=== PATIENT | female | born 1970 | race Caucasian/White ===

== ENCOUNTER 2019-05-18 05:45 | Day surgery (SDC) | payer OTHER ==
[~2019-05-18] VITALS: Ht 165.1 cm; Wt 90.3 kg
[~2019-05-18 05:45] MED LIST: AMOXICILLIN500 MG PO; BIRTH CONTROL; BUPROPION XL150 MG PO; NORCO 5-325 TA1 EACH PO; TUMS200 MG PO
[2019-05-18] MEDS ORDERED: HYDROCODON-ACE1 EA10 PO (07:24)
--- NOTE | 2019-05-18 13:23 | OR ---
[facility] [address] [place], [place] [address] Signed DATE OF OPERATION: 05/18/2019 SURGEON: Kip Huff MD PREOPERATIVE DIAGNOSIS: Carpal tunnel syndrome, left. POSTOPERATIVE DIAGNOSIS: Carpal tunnel syndrome, left. PROCEDURE PERFORMED: Left carpal tunnel release. DIRECTOR OF MIDWIFERY/STAFF MIDWIFE: None. ANESTHESIA: Tom block. TOURNIQUET TIME: 20 minutes. BRIEF HISTORY: Cristy is a 49-year-old female with bilateral carpal tunnel. She had undergone successful release of the right and wished to proceed with left. Risks, benefits, and alternatives were discussed and she elected to proceed. DESCRIPTION OF PROCEDURE: Once consent was obtained, she was taken to the operating room. After adequate anesthesia, she was placed on operating table. All downside pressure points well padded. The left arm was prepped and draped in a standard sterile fashion after establishment of the Tom block. The skin anesthesia was then checked using the forceps and found to be good. A 1.5 cm incision was made in the distal wrist crease, carried through skin and subcutaneous tissue. Palmaris longus was identified, retracted, and protected. All bleeders were cauterized with bipolar as we went. The transverse carpal ligament was identified under loupe magnification and dissected free of overlying soft tissue distally and proximally. It was then released proximally 1 cm and distally to the distal extent of the transverse carpal ligament. The release was done under loupe magnification. The release was then palpated and found to be completely released. The wound was copiously irrigated with normal saline and closed with 3-0 nylon. The skin Electronically Signed By: KIP HUFF MD 05/18/19 1323 PATIENT NAME: CRISTY JASON OPERATIVE REPORT DATE OF : 74 REPORT #: [id number] PHYSICIAN: KIP HUFF MD PCP: KENAN WORLEY MD REPORT IS CONFIDENTIAL AND NOT TO BE RELEASED WITHOUT AUTHORIZATION [facility] [address] [facility] [place], [place] [address] Signed incisions were then injected with 0.25% plain Marcaine. Wound was dressed with bacitracin, Adaptic, 4 x 8's, and gauze. She tolerated the procedure well. All sponge, needle, and instrument counts were correct. Kip Huff MD BA/MODL /[id number] Copies: ~ Electronically Signed By: KIP HUFF MD 05/18/19 1323 PATIENT NAME: CRISTY JASON OPERATIVE REPORT DATE OF : 74 REPORT #: [id number] PHYSICIAN: KIP HUFF MD PCP: KENAN WORLEY MD REPORT IS CONFIDENTIAL AND NOT TO BE RELEASED WITHOUT AUTHORIZATION
== END 2019-05-18 08:10 | disposition home or self-care (01) ==
LOC: DS 05:45 → OPS 05:45 → DS 06:45 → OPS 06:45 → DS 12:00
PROVIDERS: Specialist
PROC: 01N50ZZ Release Median Nerve, Open Approach (ICD-10-PCS; principal; 2019-05-18 06:45)
DX: G56.03 Carpal tunnel syndrome, bilateral upper limbs (principal); Z79.899 Other long term (current) drug therapy
CPT/HCPCS: 01810; J0690; J2250; J2405; J3010; J7121

== ENCOUNTER → 2020-02-06 | Emergency (ER) | payer OTHER ==
[~2020-02-06] VITALS: Ht 165.1 cm; Wt 90.3 kg
[~2020-02-06] MED LIST changes: +HYDROCODON-ACE1 EA10 PO
--- OUTSIDE RECORDS SUMMARY | ~2020-02-06 | XMS | Clinical Summary ---
Demographics + + + | Address | [address] | | | [place] [address] | + + + | Home Phone | | + + + | Preferred Language | Unknown | + + + | Marital Status | | + + + | Mandaeism Affiliation | Unknown | + + + | Race | White | + + + | Ethnic Group | Not or | + + + Author + + + | Author | [facility] | | | and [place] | + + + | Organization | [facility] | | | and [place] | + + + | Address | Unknown | + + + | Phone | Unavailable | + + + Support + + +---------+ + | Name | Relationship | Address | Phone | + + +---------+ + | None Provided | ECON | Unknown | | + + +---------+ + Care Team Providers + +------+ + | Care Opticianry Teacher Name | Role | Phone | + +------+ + | Perez Inman MD | PCP | | + +------+ + Allergies No Known Allergies Medications + + + +---------+------+------+-------+ | Medication | Sig | Dispensed | Refills | Star | End | Statu | | | | | | t | Date | s | | | | | | Date | | | + + + +---------+------+------+-------+ | buPROPion | Take 150 mg by mouth | | 0 | | | Activ | | (WELLBUTRIN XL) 150 | every morning. | | | | | e | | mg 24 hr tablet | | | | | | | + + + +---------+------+------+-------+ Active Problems + + + | Problem | Noted Date | + + + | Bilateral carpal tunnel syndrome | 03/27/2018 | + + + Family History + +------+ + + | Relation | Name | Status | Comments | + +------+ + + | Paternal Grandfather | | | diabetes | + +------+ + + Social History + +-------+ +--------+------+ | Tobacco Use | Types | Packs/Day | Years | Date | | | | | Used | | + +-------+ +--------+------+ | Never Smoker | | | | | + +-------+ +--------+------+ + +---+---+---+ | Smokeless Tobacco: | | | | | Never Used | | | | + +---+---+---+ + + +---------+ + | Alcohol Use | Drinks/Week | oz/Week | Comments | + + +---------+ + | No | | | | + + +---------+ + + + + | Sex Assigned at | Date Recorded | | | | + + + | Not on file | | + + + Last Filed Vital Signs + + + + + | Vital Sign | Reading | Time Taken | Comments | + + + + + | Blood Pressure | 124/78 | 03/27/2018 9:24 AM | | | | | PST | | + + + + + | Pulse | 87 | 03/27/2018 9:24 AM | | | | | PST | | + + + + + | Temperature | - | - | | + + + + + | Respiratory Rate | - | - | | + + + + + | Oxygen Saturation | - | - | | + + + + + | Inhaled Oxygen | - | - | | | Concentration | | | | + + + + + | Weight | 88.9 kg (196 lb) | 03/27/2018 9:24 AM | | | | | PST | | + + + + + | Height | 165.1 cm (5' 5") | 03/27/2018 9:24 AM | | | | | PST | | + + + + + | Body Mass Index | 32.62 | 03/27/2018 9:24 AM | | | | | PST | | + + + + + Plan of Treatment + + +-------+ + | Health Maintenance | Due Date | Last | Comments | | | | Done | | + + +-------+ + | Hepatitis C | | | | | Screening | 2 | | | + + +-------+ + | Vaccine: | | | | | Dtap/Tdap/Td (1 - | 1 | | | | Tdap) | | | | + + +-------+ + | Cervical Cancer | | | | | Screening (Pap) | 2 | | | + + +-------+ + | Breast Cancer | | | | | Screening | 7 | | | + + +-------+ + | Vaccine: Influenza | 09/01/202 | | | | (#1) | 0 | | | + + +-------+ + Results Not on filefrom Last 3 Months Insurance + +--------+ +--------+ +---------+--------+ | Payer | Benefi | Subscriber | Effect | Phone | Address | Type | | | t Plan | ID | funmi | | | | | | / | | Dates | | | | | | Group | | | | | | + +--------+ +--------+ +---------+--------+ | [employer] | [employer] | [id number] | | [phone] | | Medica | | MEDICAID HMO | HEALTH | | 018-Pr | 1 | | id | | | MDCD | | esent | | | | | | [place] | | | | | | + +--------+ +--------+ +---------+--------+ + +--------+ +--------+ + + | Guarantor Name | Accoun | Relation to | Date | Phone | Billing Address | | | t Type | Patient | of | | | | | | | | | | + +--------+ +--------+ + + | Constance Curry | Person | Self | [birth year] | [address] | | | al/Fam | | 1969 | | [place] [address] | | | hernando | | | 2 (Home) | | + +--------+ +--------+ + + | Constance Curry | Person | Self [birth year] | [address] | | | al/Fam | | 1969 | | [place] [address] | | | hernando | | | 2 (Home) | | + +--------+ +--------+ + + Advance Directives + + + + + | Type | Date Recorded | Patient | Explanation | | | | Soil Sampler | | + + + + + | Power of | | | | | Broadcast Designer | | | | + + + + + | Advance | | | | | Directive | | | | + + + + +
--- OUTSIDE RECORDS SUMMARY | ~2020-02-06 | XMS | Encounter Summary ---
Demographics + + + | Address | [address] | | | [place] [address] | + + + | Home Phone | | + + + | Preferred Language | Unknown | + + + | Marital Status | | + + + | Amish Affiliation | Unknown | + + + | Race | White | + + + | Ethnic Group | Not or | + + + Author + + + | Author | [facility] | | | and [place] | + + + | Organization | [facility] | | | and [...] Team Providers + +------+ + | Care Hotel Houseman Name | Role | Phone | + +------+ + | Perez Inman MD | PCP | | + +------+ + Reason for Visit + + + | Reason | Comments | + + + | Arm Pain | numbness and tingling | + + + | Hand Pain | numbness and tingling | + + + Service/Procedure (Routine) +--------+--------+ + + + + | Status | Reason | Specialty | Diagnoses / | Referred By | Referred To | | | | | Procedures | Contact | Contact | +--------+--------+ + + + + | Closed | | Physical | Diagnoses | Storm, | [place], | | | | Medicine and | Carpal | Perez | Efra Branch MD | | | | Rehabilitatio | tunnel | MD Yashira | [address] | | | | n | syndrome, | [address] | | | | | right upper | [address] | [place] | | | | | limb Carpal | [place], | [address] Phone: | | | | | tunnel | [place] [address] | [phone] | | | | | syndrome, | Phone: | Fax: | | | | | left upper | [phone] | [phone] | | | | | limb | Fax: | | | | | | Procedures | [phone] | | | | | | SC MOTOR | | | | | | | &/SENS 3-4 | | | | | | | NRV CNDJ | | | | | | | PRECONF | | | | | | | ELTRODE LIMB | | | | | | | SC MOTOR | | | | | | | &/SENS 5-6 | | | | | | | NRV CNDJ | | | | | | | PRECONF | | | | | | | ELTRODE LIMB | | | | | | | SC EMG, | | | | | | | NEEDLE, TWO | | | | | | | LIMBS SC | | | | | | | NEEDLE EMG | | | | | | | EA EXTREMITY | | | | | | | W/PARASPINL | | | | | | | AREA | | | | | | | LIMITED | | | +--------+--------+ + + + + Encounter Details +--------+ + + + + | Date | Type | Department | Care Team | Description | +--------+ + + + + | 03/27/ | Procedure | [facility] | Efra Cheng | Bilateral carpal | | 2017 | visit | PHYSIATRY [address] | [address] | tunnel syndrome | | | | [address] | [address] [place] | | | | | [place] | [address] | | | | | [id number] | | | | | | [phone] | | | +--------+ + + + + Social History + +-------+ +--------+------+ [...] on file | | + + + documented as of this encounter Last Filed Vital Signs + + + [...] | | + + + + + documented in this encounter Progress Notes Efra Cheng MD - 03/27/2018 9:10 AM PST [facility], [facility] [address] [place] [id number] Test Date: 03/27/2018 Patient Name: Constance Curry : 1970 Physician: Efra Cheng MD MR #: [id number] Sex: Female Referring Physician: Perez Inman MD HISTORY: The patient is a very pleasant 48 year-old right-handed female who is being seen today at t he request of Dr. Perez Inman for complaints of bilateral upper extemity numbness, ting ling, pain and weakness. The patient reports that her symtpoms started many years ago and h ave been getting progressively worse. She states that she has had EMG/NCS in the past which did show carpal tunnel syndrome. Reportedly it was also felt that she had some tendonitis. Unfortunately I do not have the actual report from that study. The patient denies any obvious risk factors for peripheral neuropathy such as diabetes, hyp othyroidism, alcohol abuse, renal failure or history of cancer. Nerve Conduction Studies Anti Sensory Summary Table Site NR Peak (ms) Norm Peak (ms) P-T Amp (V) Norm P-T Amp Site1 Site2 Delta-P (ms) Dist (cm) Genaro (m/s) Norm Genaro (m/s) Left Radial Anti Sensory (Base 1st Digit) Wrist 2.2 <3.1 33.0 Wrist Base 1st Digit 2.2 10.0 45 Right Radial Anti Sensory (Base 1st Digit) Wrist 2.2 <3.1 32.2 Wrist Base 1st Digit 2.2 10.0 45 Motor Summary Table Site NR Onset (ms) Norm Onset (ms) O-P Amp (mV) Norm O-P Amp Site1 Site2 Delta-0 (ms) Dist (cm) Genaro (m/s) Norm Genaro (m/s) Left Median Motor (Abd Poll Brev) Wrist *4.3 <4.2 5.7 >5 Elbow Wrist 3.8 20.0 53 >50 Elbow 8.1 5.0 Right Median Motor (Abd Poll Brev) Wrist *5.2 <4.2 6.0 >5 Elbow Wrist 4.2 21.0 50 >50 Elbow 9.4 5.5 Left Ulnar Motor (Abd Dig Minimi) Wrist 2.6 <4.2 9.2 >3 B Elbow Wrist 2.9 18.0 62 >53 B Elbow 5.5 9.0 A Elbow B Elbow 1.6 10.0 63 >53 A Elbow 7.1 8.0 Right Ulnar Motor (Abd Dig Minimi) Wrist 2.7 <4.2 8.7 >3 B Elbow Wrist 3.0 19.0 63 >53 B Elbow 5.7 8.7 A Elbow B Elbow 1.6 10.0 63 >53 A Elbow 7.3 7.7 Comparison Summary Table Site NR Peak (ms) Norm Peak (ms) P-T Amp (V) Site1 Site2 Delta-P (ms) Norm Delta (ms) Left Median/Ulnar Palm Comparison (Wrist - 8cm) Median Palm *2.3 <2.2 73.5 Median Palm Ulnar Palm *0.5 <0.3 Ulnar Palm 1.8 <2.2 27.4 Right Median/Ulnar Palm Comparison (Wrist - 8cm) Median Palm *3.4 <2.2 12.4 Median Palm Ulnar Palm *1.6 <0.3 Ulnar Palm 1.8 <2.2 37.6 EMG Side Muscle Nerve Root Ins Act Fibs Psw Amp Dur Poly Recrt Int Pat Comment Right Deltoid Axillary C5-6 Nml Nml Nml Nml Nml 0 Nml Nml Right Biceps Musculocut C5-6 Nml Nml Nml Nml Nml 0 Nml Nml Right Triceps Radial C6-7-8 Nml Nml Nml Nml Nml 0 Nml Nml Right PronatorTeres Median C6-7 Nml Nml Nml Nml Nml 0 Nml Nml Right 1stDorInt Ulnar C8-T1 Nml Nml Nml Nml Nml 0 Nml Nml Nerve Conduction Studies Motor Left/Right Comparison Site L Lat (ms) R Lat (ms) L-R Lat (ms) L Amp (mV) R Amp (mV) L-R Amp (%) Site1 Site2 L Ve l (m/s) R Genaro (m/s) L-R Genaro (m/s) Median Motor (Abd Poll Brev) Wrist *4.3 *5.2 *0.9 5.7 6.0 5.0 Elbow Wrist 53 50 3 Elbow 8.1 9.4 1.3 5.0 5.5 9.1 Ulnar Motor (Abd Dig Minimi) Wrist 2.6 2.7 0.1 9.2 8.7 5.4 B Elbow Wrist 62 63 1 B Elbow 5.5 5.7 0.2 9.0 8.7 3.3 A Elbow B Elbow 63 63 0 A Elbow 7.1 7.3 0.2 8.0 7.7 3.7 Anti Sensory Left/Right Comparison Site L Lat (ms) R Lat (ms) L-R Lat (ms) L Amp (V) R Amp (V) L-R Amp (%) Site1 Site2 L Genaro (m/s) R Genaro (m/s) L-R Genaro (m/s) Radial Anti Sensory (Base 1st Digit) Wrist 2.2 2.2 0.0 33.0 32.2 2.4 Wrist Base 1st Digit 45 45 0 Comparison Left/Right Comparison Site L Lat (ms) R Lat (ms) L-R Lat (ms) L Amp (V) R Amp (V) L-R Amp (%) Median/Ulnar Palm Comparison (Wrist - 8cm) Median Palm *2.3 *3.4 1.1 73.5 12.4 83.1 Ulnar Palm 1.8 1.8 0.0 27.4 37.6 27.1 NCV FINDINGS: Evaluation of the Left median motor and the Right median motor nerves showed prolonged dist al onset latency. The Left median/ulnar (palm) comparison and the Right median/ulnar (palm) comparison nerves showed prolonged distal peak latency (Median Palm) and abnormal peak late ncy difference (Median Palm-Ulnar Palm). All remaining nerves (as indicated in the precedin g tables) were within normal limits. EMG FINDINGS: All examined muscles (as indicated in the preceding table) showed no evidence of electrical instability. 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 Th e findings are consistent with a clinical diagnosis of carpal tunnel syndrome. The severity would be graded as moderate on the left and moderately severe on the right. There was no electrodiagnostic evidence of ulnar neuropathy, cervical radiculopathy, brachi al plexopathy, peripheral neuropathy or myopathy. Given that the patient has had only partial improvement with carpal tunnel splints and over all the symptoms have been progressive I do think that it would be warranted to consider sukumar gical management of this issue. She will discuss this further with Dr. Inman. In the wy antime she will continue to use carpal tunnel splints. Efra Cheng MD Fellow, [employer] [place] [employer]. documented in this encounter Plan of Treatment Not on filedocumented as of this encounter Visit Diagnoses + + | Diagnosis | + + | Bilateral carpal tunnel syndrome Carpal tunnel syndrome | + + documented in this encounter
== END ==
LOC: ED 17:28
DX: M79.672 Pain in left foot (principal)

== ENCOUNTER 2020-10-27 18:12 | Emergency (ER) | payer OTHER ==
[~2020-10-27] VITALS: Ht 165.1 cm; Wt 88.0 kg
[2020-10-27] MEDS ORDERED: VENTOLIN HFA18 GM INH (18:26)
[2020-10-27] MEDS ORDERED: ALBUTEROL2.5 MG/3 M INH (22:01)
[2020-10-27] MEDS ORDERED: PREDNISONE20 MG PO (22:01)
--- NOTE | 2020-10-29 13:33 | EKG ---
[facility] [address] [facility] [place], [place] [address] Signed Normal sinus rhythm Normal ECG No previous ECGs available Confirmed by LUCILLE NEWSOME MD ([id number]) on 10/29/2020 1:33:05 PM Electronically Signed By: LUCILLE NEWSOME MD 10/29/20 1333 PATIENT NAME: CRISTY JASON Electrocardiogram DATE OF : 74 PHYSICIAN: LUCILLE NEWSOME MD REPORT #: [id number] REPORT IS CONFIDENTIAL AND NOT TO BE RELEASED WITHOUT AUTHORIZATION
== END 2020-10-27 22:20 | disposition home or self-care (01) ==
LOC: ED 18:12
DX: U07.1 COVID-19 (principal); J12.82 Pneumonia due to coronavirus disease 2019; J45.909 Unspecified asthma, uncomplicated; Z91.012 Allergy to eggs; Z79.899 Other long term (current) drug therapy
CPT/HCPCS: 71045; 80053; 83605; 83880; 84484; 85025; 87040; 93005; 93010; 99285-25; C9803; J1100; U0003